=== PATIENT | female | born 1965 | race African-American/Black ===

== ENCOUNTER 2018-02-23 20:04 | Emergency (ER) | payer OTHER ==
--- NOTE | 2018-02-23 20:07 | PDOC ---
History of Present Illness - General History Source: Patient Exam Limitations: No Limitations - History of Present Illness Initial Comments: 02/23/18 21:25 The patient is a 52 year old female with a significant past medical history of distal end fibula fracture, and closed fracture of distal fibula who presents to the emergency department with an injury to her left ribs s/p fall thursday. The patient reports that the pain severity of her left rib pain was a 7/10. She reports that she fell reaching for something and she hit her left ribs on the arm of a chair when she fell. The patient reports that her left side rib pain is increased with movement and deep breaths. The patient denies any other complaints. She denies any chest pain or shortness of breath PAST MEDICAL HISTORY: Closed distal end fibula fracture PAST SURGICAL HISTORY: no significant history FAMILY HISTORY: no pertinent history SOCIAL HISTORY: None reported MEDICATIONS: Hydrochlorothiazide ALLERGIES: No known drug allergies General: No fevers or chills, no weakness, no weight loss HEENT: No change in vision. No sore throat,. No ear pain CardioVascular: No chest pain or shortness of breath Respiratory:No cough, or wheezing. Gastrointestinal: no nausea, vomiting, diarrhea or constipation, No rectal bleeding Genitourinary: No dysuria, hematuria, or frequency Musculoskeletal: (+) left rib injury. No joint or muscle pain or swelling Neurologic: No headache, vertigo, dizziness or loss of consciousness Psychiatric: nor depression Skin: No rashes or easy bruising Endocrine: no increased thirst or abnormal weight change Allergic: no skin or latex allergy All other systems reviewed and normal General: Well-nourished well-developed individual, no acute distress HEENT: Throat: Normal, tonsils normal, no erythema or exudate Neck: Supple, no meningeal signs, no lymphadenopathy Eyes::Pupils equal reactive and round, extraocular motion intact Chest: (+)Tenderness on palpation of left lower ribs and mid clavicular line anteriorly. No ecchymosis or crepitus in area. Cardiac: S1-S2 normal, regular rate and rhythm, no murmurs rubs or gallops Respiratory: Lungs clear to auscultation bilateral Extremities: Warm, dry, no cyanosis, clubbing, or edema Skin: No rashes Neuro: Alert and oriented x3, nonfocal exam, grossly intact, normal gait Psych: Normal mood and affect <Faizan,Collisia - Last Filed: 02/23/18 21:25> - General History Source: Patient Exam Limitations: No Limitations - History of Present Illness Initial Comments: 02/23/18 20:56 A portion of this note was documented by scribe services under my direction. I have reviewed the details of the note, within reason, and agree with the documentation. The case summary and management plan written by me. Assessment and plan: This is a 52-year-old female who lost her balance and fell several days ago hitting the left anterior lower ribs on a chair arm. Patient has had pain and discomfort since the injury. Patient denies any shortness of breath. Patient said that movement and palpation makes the pain worse. Patient says the pain is not exacerbated by deep respirations. Patient denies any cough or congestion fevers or chills. Patient denies any other injuries. X-ray of the chest and ribs was negative for any acute fracture dislocation as reviewed by me Patient given ibuprofen for the pain and discharged will follow-up with her primary care doctor as needed <Jeferson Salinas I - Last Filed: 02/23/18 21:43> - General Chief Complaint: Injury Stated Complaint: FELL HITTING LEFT RIBS ON CHAIR Time Seen by Provider: 02/23/18 20:06 Past History <Pete Gloria - Last Filed: 02/23/18 21:25> - Past Medical History Anemia: No Asthma: No Cancer: No Cardiac Disorders: No CVA: No COPD: No CHF: No Dementia: No Diabetes: No GI Disorders: No Disorders: No HTN: Yes Hypercholesterolemia: No Liver Disease: No Seizures: No Thyroid Disease: No - Surgical History Abdominal Surgery: No Appendectomy: No Cardiac Surgery: No Cholecystectomy: No Lung Surgery: No Neurologic Surgery: No Orthopedic Surgery: Yes (ORIF Right Ankle 10/2015) - Suicide/Smoking/Psychosocial Hx Smoking History: Never smoked Hx Alcohol Use: No Drug/Substance Use Hx: No Substance Use Type: None Hx Substance Use Treatment: No <Jeferson Salinas I - Last Filed: 02/23/18 21:43> - Past Medical History Allergies/Adverse Reactions: Allergies Allergy/AdvReac Type Severity Reaction Status Date / Time No Known Allergies Allergy Verified 02/23/18 20:12 Home Medications: Ambulatory Orders Hydrochlorothiazide [Hctz -] 25 mg PO DAILY 09/28/15 *Physical Exam - Vital Signs Last Vital Signs Temp Pulse Resp BP Pulse Ox 98.4 F 92 H 16 150/102 100 02/23/18 20:14 02/23/18 20:14 02/23/18 20:14 02/23/18 20:14 02/23/18 20:14 <Pete Gloria - Last Filed: 02/23/18 21:25> ED Treatment Course - Medications Given in the ED: ED Medications Discontinued Medications Generic Name Dose Route Start Last Admin Trade Name Maria E PRN Reason Stop Dose Admin Ibuprofen 600 mg 02/23/18 20:57 02/23/18 21:08 Motrin - PO 02/23/18 20:58 600 mg ONCE ONE Administration <Pete Gloria - Last Filed: 02/23/18 21:25> *DC/Admit/Observation/Transfer - Attestations Scribe Attestion: 02/23/18 21:25 Documentation prepared by Pete Gloria, acting as medical insurance verifier for Jeferson Salinas MD. <Pete Gloria - Last Filed: 02/23/18 21:25> <Jeferson Salinas I - Last Filed: 02/23/18 21:43> Diagnosis at time of Disposition: Contusion of rib on left side Qualifiers: Encounter type: initial encounter Qualified Code(s): S20.212A - Contusion of left front wall of thorax, initial encounter - Discharge Dispostion Disposition: HOME Condition at time of disposition: Stable - Patient Instructions Additional Instructions: For the pain take ibuprofen 3 tablets 3 times a day with food don't take on an empty stomach. Make sure you take intermittent deep respirations. Return to the emergency department immediately with ANY new, persistent or worsening symptoms. Continue any medications as previously prescribed by your physician. You should follow up with your primary doctor as soon as possible regarding today's emergency department visit. . Please make sure your doctor reviews the results of your emergency evaluation. Thank you for coming to the Emergency Department today for your care. It was a pleasure to see you today. Please note that your evaluation is INCOMPLETE until you follow-up with your doctor.
[2018-02-23 20:17] VITALS: BP 150/102; PULSE 92; TEMP 98.4; BMI 27.8
[2018-02-23] MEDS ORDERED: IBUPROFEN 600 MG TABLET (FP) PO ONE ×2 (20:57→21:09)
== END 2018-02-23 21:13 | disposition home or self-care (01) ==
LOC: FER 20:04
DX: S20.212A Contusion of left front wall of thorax, initial encounter (principal); W18.39XA Other fall on same level, initial encounter; Y93.89 Activity, other specified; Y92.9 Unspecified place or not applicable; I10 Essential (primary) hypertension
CPT/HCPCS: 71046-TC-FY; 71101-TC-FY; 99281-25

== ENCOUNTER 2025-03-26 10:27 | Emergency (ER) | payer BC, OTHER ==
[2025-03-26 10:33] VITALS: PULSE 118; RESP 20; TEMP 97.7; BMI 27.8
[2025-03-26] MEDS ORDERED: KETOROLAC TROMETHAMINE 30 MG/1 ML VIAL ONE (10:51)
[2025-03-26] MEDS ORDERED: LIDOCAINE 5% TOPICAL PATCH ONE (10:51)
[2025-03-26] MEDS ORDERED: ACETAMINOPHEN 500 MG TABLET (FP) ONE (10:51)
[2025-03-26] MEDS: LIDOCAINE 5% TOPICAL PATCH TP ONE (11:00)
[2025-03-26] MEDS: KETOROLAC TROMETHAMINE 30 MG/1 ML VIAL IM ONE (11:01)
[2025-03-26] MEDS: ACETAMINOPHEN 500 MG TABLET (FP) PO ONE (11:02)
[2025-03-26 11:32] VITALS: BP 158/98
[2025-03-26] MEDS ORDERED: LIDOCAINE PATCH REMOVAL MC SCH (22:00)
== END 2025-03-26 11:30 | disposition home or self-care (01) ==
LOC: FER 10:27
PROC: 3E0233Z Introduction of Anti-inflammatory into Muscle, Percutaneous Approach (ICD-10-PCS; principal; 2025-03-26)
DX: S29.012A Strain of muscle and tendon of back wall of thorax, initial encounter (principal); X58.XXXA Exposure to other specified factors, initial encounter
CPT/HCPCS: 99284-25